=== PATIENT | female | born 1980 | race Caucasian/White ===

== ENCOUNTER → 2016-03-07 | Outpatient (CLI) | payer OTHER ==
[2016-03-07 16:46] LABS: FREE T4 1.28 NG/DL (0.76-1.46)
== END ==
LOC: M LAB 14:58
PROVIDERS: ATTEND Physician Assistant
DX: E03.9 Hypothyroidism, unspecified (principal)

== ENCOUNTER → 2016-06-13 | Outpatient (CLI) | payer OTHER ==
--- NOTE | 2016-06-13 13:42 | REP ---
THYROID ULTRASOUND: Real-time sonographic evaluation of the thyroid performed. Right lobe measures 3.0 x 0.8 x 0.8 cm and left lobe 2.9 x 1.0 x 0.6 cm. Tiny cystic structure in the mid right lobe measures 2 mm in diameter. Oval hyperechoic area in the mid left lobe measures 4 x 3 x 1 mm. No other dominant nodule or cyst is seen. IMPRESSION: Tiny cystic area right lobe. Tiny hyperechoic area left lobe. These are of doubtful significance. No suspicious findings. Signed by Gurmeet Marin MD 06/13/2016 02:28 P
== END ==
LOC: M RAD 10:55
PROVIDERS: ATTEND Family Medicine
DX: E04.1 Nontoxic single thyroid nodule (principal)

== ENCOUNTER → 2016-06-27 | Outpatient (CLI) | payer OTHER ==
[~2016-06-27] MED LIST: METHACHOLINE KIT (J7674) INH ONE
--- NOTE | 2016-06-27 15:24 | PFTRPT ---
Site: [facility], [address] [place], [address] ID: [id number] Name: GONZALEZ DESAI Doctor: Jones Will Tech: Jen OLSON RRT Age: 36 Sex: Female Race: Height: 64.00 Inches Weight: 138.00 Lbs BSA: 1.67 Diagnosis: R06.02 test meet the ATS standards for acceptability and repeatability. Pre-Bronch Post-Bronch Pred Actual %Pred Actual %Chng SPIROMETRY FVC (L) 3.74 2.90 77 FEV1 (L) 3.09 2.56 82 FEV1/FVC (%) 83 88 106 FEF 25% (L/sec) 5.56 4.47 80 FEF 50% (L/sec) 4.33 3.30 76 FEF 75% (L/sec) 1.76 1.59 90 FEF 25-75% (L/sec) 3.27 2.88 87 FEF Max (L/sec) 7.01 4.49 64 FIVC (L) 2.28 FIF 50% (L/sec) 3.85 2.49 64 FIF Max (L/sec) 2.84 MVV (L/min) 105 52 49 LUNG VOLUMES SVC (L) 3.54 2.48 69 IC (L) 2.27 1.81 79 ERV (L) 1.27 0.67 52 TGV (L) 2.78 2.71 97 RV (Pleth) (L) 1.51 2.04 135 TLC (Pleth) (L) 5.05 4.52 89 RV/TLC (Pleth) (%) 29 45 155 DIFFUSION DLCOunc (ml/min/mmHg) 24.29 23.47 96 DL/VA (ml/min/mmHg/L) 4.81 6.09 126 VA (L) 5.05 3.85 76 AIRWAYS RESISTANCE Raw (cmH2O/L/s) 1.86 1.03 55 Gaw (L/s/cmH2O) 1.03 0.97 94 sRaw (cmH2O*s) 4.76 3.02 63 sGaw (1/cmH2O*s) 0.20 0.33 165
--- NOTE | 2016-06-28 09:47 | PFTRPT ---
Site: [facility], [address] [place], [address] ID: [id number] Name: SONYA DESAIRUSSEL DASH Doctor: Jones Will Tech: Jen OLSON RRT Age: 36 Sex: Female Race: Height: 64.00 Inches Weight: 138.00 Lbs BSA: 1.67 Diagnosis: R06.02 of albuterol for postbronchodilator. Pre-Bronch Post-Bronch Pred Actual %Pred Actual %Chng SPIROMETRY FVC (L) 3.74 2.80 74 3.02 7 FEV1 (L) 3.09 2.66 86 2.62 -1 FEV1/FVC (%) 83 95 114 87 -8 FEF 25% (L/sec) 5.56 4.44 79 5.54 24 FEF 50% (L/sec) 4.33 3.40 78 4.06 19 FEF 75% (L/sec) 1.76 2.17 123 1.87 -14 FEF 25-75% (L/sec) 3.27 3.15 96 3.43 8 FEF Max (L/sec) 7.01 4.45 63 5.78 29 FIVC (L) 1.72 2.39 38 FIF 50% (L/sec) 3.85 1.93 50 2.41 25 FIF Max (L/sec) 2.51 2.51
== END ==
LOC: M CARPUL 14:48
PROVIDERS: ATTEND Physician Assistant
DX: R06.02 Shortness of breath (principal)

== ENCOUNTER → 2016-06-29 | Outpatient (CLI) | payer OTHER ==
[2016-06-29 16:27] LABS: THYROID PEROXIDASE ANTIBODY < 28.0 U/ML (<60.0)
[2016-06-29 16:32] LABS: FREE T4 1.26 NG/DL (0.76-1.46)
== END ==
LOC: M LAB 14:50
PROVIDERS: ATTEND Family Medicine
DX: E03.9 Hypothyroidism, unspecified (principal)

== ENCOUNTER → 2017-12-03 | Outpatient (CLI) | payer OTHER ==
[2017-12-03 14:17] LABS: ESTRADIOL 172.5 PG/ML
[2017-12-03 14:17] LABS: FOLLICLE STIMULATING HORMONE 3.6 mIU/mL; FREE T4 1.44 NG/DL (0.76-1.46); LUTEINIZING HORMONE 3.3 mIU/mL; THYROID STIMULATING HORMONE 0.646 uIU/ML (0.358-3.740)
== END ==
LOC: M SMT 10:23
DX: N95.1 Menopausal and female climacteric states (principal)

== ENCOUNTER → 2018-04-23 | Outpatient (CLI) | payer OTHER ==
[2018-04-23 18:10] LABS: FREE T4 1.24 NG/DL (0.76-1.46); THYROID STIMULATING HORMONE 0.959 uIU/ML (0.358-3.740)
== END ==
LOC: M SMT 14:34
PROVIDERS: ATTEND Physician Assistant
DX: Z00.00 Encounter for general adult medical examination without abnormal findings (principal)